=== PATIENT | male | born 1960 | race Caucasian/White ===

== ENCOUNTER 2017-03-16 10:51 | Emergency (ER) | payer OTHER ==
--- NOTE | 2017-03-16 11:19 | ER Document Report ---
ED Neck/Back Problem - General Chief Complaint: Back Injury Stated Complaint: BACK PAIN Time Seen by Provider: 03/16/17 11:19 Notes: 56-year-old male with history of ankylosing spondylitis. States that he fell one week ago landing on his thoracic spine. Having pain in the midline of his thoracic spine. States that he lives with chronic pain. Has followed by a pain medicine clinic in [place]. States that he has pain medication at home. More concerned that he might have broken something. States it hurts to bend over and lift things. Denies any fever. Denies any loss of bowel or bladder function. Denies any numbness to his lower extremities. Denies any saddle anesthesia. No fever. Has had multiple episodes of flareups of his ankylosing spondylitis. Has tried biologic agents but nothing seems to help. - Related Data Allergies/Adverse Reactions: codeine Allergy (Verified 03/16/17 10:57) NSAIDS (Non-Steroidal Anti-Inflamma Allergy (Verified 03/16/17 10:57) Sulfa (Sulfonamide Antibiotics) Allergy (Verified 03/16/17 10:57) Past Medical History - Social History Smoking Status: Current Every Day Smoker Family History: Reviewed & Not Pertinent Renal/ Medical History: Denies: Hx Peritoneal Dialysis Review of Systems - Review of Systems Constitutional: No symptoms reported EENT: No symptoms reported Cardiovascular: No symptoms reported Respiratory: No symptoms reported Gastrointestinal: No symptoms reported Genitourinary: No symptoms reported Male Genitourinary: No symptoms reported Musculoskeletal: No symptoms reported, Back pain Skin: No symptoms reported Hematologic/Lymphatic: No symptoms reported Neurological/Psychological: No symptoms reported Physical Exam - Vital signs Vitals: Temp Pulse Resp BP Pulse Ox 97.7 F 71 20 130/86 H 97 03/16/17 10:55 03/16/17 10:55 03/16/17 10:55 03/16/17 10:55 03/16/17 10:55 Interpretation: Normal - General General appearance: Appears well, Alert - HEENT Head: Normocephalic, Atraumatic Eyes: Normal Pupils: PERRL - Respiratory Respiratory status: No respiratory distress Chest status: Nontender Breath sounds: Normal Chest palpation: Normal - Cardiovascular Rhythm: Regular Heart sounds: Normal auscultation Murmur: No - Abdominal Inspection: Normal Distension: No distension Bowel sounds: Normal Tenderness: Nontender Organomegaly: No organomegaly - Back Back: Normal, Nontender - Extremities General upper extremity: Normal inspection, Nontender, Normal color, Normal ROM , Normal temperature General lower extremity: Normal inspection, Nontender, Normal color, Normal ROM , Normal temperature, Normal weight bearing. No: Sonu's sign - Neurological Neuro grossly intact: Yes Cognition: Normal Orientation: AAOx4 [place] Coma Scale Eye Opening: Spontaneous [place] Coma Scale Verbal: Oriented [place] Coma Scale Motor: Obeys Commands [place] Coma Scale Total: 15 Speech: Normal Motor strength normal: LUE, RUE, LLE, RLE Sensory: Normal - Psychological Associated symptoms: Normal affect, Normal mood - Skin Skin Temperature: Warm Skin Moisture: Dry Skin Color: Normal Course - Re-evaluation Re-evalutation: 03/16/17 13:49 X-ray was performed based on history of trauma. There is a query of possible rib fracture on the left. Did a controlled prescription inquiry and no current prescriptions for narcotics was found. Based on the fact that he likely does have a rib fracture as this is where his pain is we will give him a short supply of pain relief. We will also prescribe him some lidocaine patches to use. Patient encouraged to follow back up with pain specialist. Return for any worsening symptoms or concerns per Thoracic Spine X-Ray 03/16/17 12:12 IMPRESSION: Thoracic spine intact. Potential left 9th rib fracture. No pneumothorax. - Vital Signs Vital signs: Temp Pulse Resp BP Pulse Ox 97.7 F 71 20 130/86 H 97 03/16/17 10:55 03/16/17 10:55 03/16/17 10:55 03/16/17 10:55 03/16/17 10:55 Discharge - Discharge Clinical Impression: Rib fracture, Chronic pain Disposition: HOME, SELF-CARE Instructions: Ice Packs ([facility]), Oral Narcotic Medication ([facility]) Additional Instructions: Rib Injuries and Fractures You have been diagnosed as having either bruised or broken ribs. These two injuries are treated in the same way. It will usually take four to six weeks for these injured ribs to heal. Sometimes, rib belts or anesthetic injections of the chest wall help reduce the pain. If you are using a rib belt, you should cough or take a deep breath at least every hour or two to prevent lung complications. You should not engage in any strenuous physical activity until released by your physician. The usual rule is "if it hurts, don't do it." Rib fractures can lead to serious lung complications including lung collapse, hemorrhage, and pneumonia. You should call the physician or return at once if any of the following occur: (1) Fever or chills. (2) Persistent cough, coughing up blood, or shortness of breath. (3) Increasing pain. (4) Weakness, lightheadedness, or fainting. Prescriptions: Hydrocodone/Acetaminophen [Una 10-325 Tablet] 1 each PO Q6H PRN #15 tablet PRN Reason: Referrals: DEV SANCHEZ PA-C [Primary Care Provider] - Follow up as needed
--- NOTE | 2017-03-16 13:37 | RADIOLOGY REPORT (SQ) ---
EXAM DESCRIPTION: T SPINE AP/LAT COMPLETED DATE/TIME: 03/16/2017 1:04 pm REASON FOR STUDY: fall pain COMPARISON: None. NUMBER OF VIEWS: Two views. TECHNIQUE: AP and lateral radiographic images acquired of the thoracic spine. LIMITATIONS: None. FINDINGS: MINERALIZATION: Normal. ALIGNMENT: Mild kyphosis but no fracture. VERTEBRAE: No fracture or bone lesion. Maintained height, normal segmentation. DISCS: Mild multilevel disc space narrowing with mid to lower thoracic small osteophytes. HARDWARE: None in the spine. MEDIASTINUM AND SOFT TISSUES: Normal heart size and aortic contour. No soft tissue abnormality. VISUALIZED LUNG PRITCHETT: Clear. OTHER: Potential nondisplaced left posterior 9th rib fracture. IMPRESSION: Thoracic spine intact. Potential left 9th rib fracture. No pneumothorax. TECHNICAL DOCUMENTATION: JOB ID: [id number] [employer]- All Rights Reserved
[2017-03-16 14:09] VITALS: BP 145/75
== END 2017-03-16 14:05 | disposition home or self-care (01) ==
LOC: ER 10:51
DX: S22.39XA Fracture of one rib, unspecified side, initial encounter for closed fracture (principal); G89.29 Other chronic pain; M54.9 Dorsalgia, unspecified; F17.200 Nicotine dependence, unspecified, uncomplicated; W19.XXXA Unspecified fall, initial encounter
CPT/HCPCS: 72070; 99283

== ENCOUNTER 2019-07-19 03:13 | Emergency (ER) | payer MEDICARE ==
[2019-07-19 04:00] LABS: APPEARANCE,URINE SLIGHTLY-CLOUDY; BILIRUBIN,URINE NEGATIVE (NEGATIVE); COLOR,URINE YELLOW; GLUCOSE, URINE NEGATIVE (NEGATIVE); KETONES,URINE NEGATIVE (NEGATIVE); LEUKOCYTE ESTERASE,URINE TRACE (NEGATIVE); NITRITE,URINE NEGATIVE (NEGATIVE); PROTEIN,URINE 100 mg/dL (NEGATIVE); URINE SPECIFIC GRAVITY 1.018
[2019-07-19 04:09] LABS: ALBUMIN 4.2 g/dL (3.5-5.0); ALKALINE PHOSPHATASE 49 U/L (38-126); ANION GAP 7 (5-19); ASPARTATE AMINO TRANSFERASE 28 U/L (17-59); BILIRUBIN,TOTAL 0.4 mg/dL (0.2-1.3); BLOOD UREA NITROGEN 12 mg/dL (7-20); CALCIUM 9.3 mg/dL (8.4-10.2); CARBON DIOXIDE 27 mmol/L (22-30); CHLORIDE 105 mmol/L (98-107); GLUCOSE 111 mg/dL (75-110); POTASSIUM 4.2 mmol/L (3.6-5.0); TOTAL PROTEIN 6.6 g/dL (6.3-8.2)
[2019-07-19 04:11] LABS: ABSOLUTE BASOPHILS # (AUTO) 0.1 10^3/uL (0.0-0.2); ABSOLUTE EOSINOPHILS # (AUTO) 0.1 10^3/uL (0.0-0.6); ABSOLUTE LYMPHOCYTES (AUTO) 1.5 10^3/uL (0.5-4.7); ABSOLUTE MONOCYTES (AUTO) 0.8 10^3/uL (0.1-1.4); ABSOLUTE NEUT (AUTO) 4.7 10^3/uL (1.7-8.2); BASOPHILS % (AUTO) 0.8 % (0-2); EOSINOPHILS % (AUTO) 1.9 % (0-6); HEMATOCRIT 42.7 % (37.9-51.0); HEMOGLOBIN 14.6 g/dL (13.5-17.0); LYMPHOCYTES % (AUTO) 21.2 % (13-45); MEAN CORPUSCULAR HEMOGLOBIN 32.4 pg (27.0-33.4); MEAN CORPUSCULAR HGB CONC 34.2 g/dL (32.0-36.0); MEAN CORPUSCULAR VOLUME 95 fl (80-97); MONOCYTES % (AUTO) 11.6 % (3-13); PLATELET COUNT 239 10^3/uL (150-450); RED BLOOD COUNT 4.51 10^6/uL (4.35-5.55); SEGMENTED NEUTROPHILS % (AUTO) 64.5 % (42-78); TOTAL CELLS COUNTED % (AUTO) 100 %; WHITE BLOOD COUNT 7.2 10^3/uL (4.0-10.5)
[2019-07-19] MEDS ORDERED: MORPHINE SULFATE 10 MG/ML INJ IV PRN (07:04)
--- NOTE | 2019-07-19 09:46 | RADIOLOGY REPORT (SQ) ---
EXAM DESCRIPTION: CT ABD/PELVIS NO ORAL OR IV COMPLETED DATE/TIME: 07/19/2019 9:29 am REASON FOR STUDY: Hematuria, left flank and abdomen pain COMPARISON: 08/08/2018. TECHNIQUE: CT scan of the abdomen and pelvis performed without intravenous or oral contrast. Images reviewed with lung, soft tissue, and bone windows. Reconstructed coronal and sagittal MPR images revi ewed. All images stored on PACS. All CT scanners at this facility use dose modulation, iterative reconstruction, and/or weight based d osing when appropriate to reduce radiation dose to as low as reasonably achievable (ALARA). [facility]: Dose Right [facility]: CareDose [facility]: Dose Right [facility]: Teradose 4D [facility]: Smart [employer] RADIATION DOSE: CT Rad equipment meets quality standard of care and radiation dose reduction techniq ues were employed. CTDIvol: 15.5 mGy. DLP: 869 mGy-cm.mGy. LIMITATIONS: None. FINDINGS: LOWER CHEST: No significant findings. No nodules or infiltrates. NON-CONTRASTED LIVER, SPLEEN, ADRENALS: Evaluation limited by lack of IV contrast. No identified sign ificant masses. PANCREAS: No masses. No peripancreatic inflammatory changes. GALLBLADDER: Surgically absent. RIGHT KIDNEY AND URETER: 9 mm exophytic lesion on the cortex of the lower pole. Average [place]oun[place] u nits roughly 20. Assessment limited by lack of IV contrast. No significant calcifications. No hyd ronephrosis or hydroureter. LEFT KIDNEY AND URETER: No suspicious masses. Assessment limited by lack of IV contrast. 9 mm calcu ale in the renal pelvis. No hydronephrosis or hydroureter. AORTA AND RETROPERITONEUM: No aneurysm. No retroperitoneal masses or adenopathy. BOWEL AND PERITONEAL CAVITY: Diverticuli in the descending and sigmoid colon. No obvious masses or i nflammatory changes. No free fluid. APPENDIX: Normal. PELVIS, BLADDER, AND ABDOMINAL WALL:No abnormal masses. No free fluid. Bladder normal. BONES: No significant findings. OTHER: No other significant finding. IMPRESSION: 1. 9 MM NONOBSTRUCTING CALCULUS IN THE RENAL PELVIS OF THE LEFT KIDNEY. 2. SMALL EXOPHYTIC CORTICAL LESION ON THE LOWER POLE OF THE RIGHT KIDNEY. COULD BE A CYST ALTHOUGH I NDETERMINATE APPEARANCE ON NONCONTRAST CT. MAY CONSIDER FOLLOW-UP ULTRASOUND FOR FURTHER EVALUATION. 3. COLONIC DIVERTICULOSIS. NO CT FINDINGS OF ACUTE DIVERTICULITIS. 4. NO OTHER SIGNIFICANT OR ACUTE PROCESS IN THE ABDOMEN OR PELVIS. COMMENT: Quality ID # [id number]: Final reports with documentation of one or more dose reduction techniques (e.g., Automated exposure control, adjustment of the mA and/or kV according to patient size, use of iterative reconstruction technique) TECHNICAL DOCUMENTATION: JOB ID: [id number] 2011 [employer]- All Rights Reserved Reading location - IP/workstation name: [email or web address]
--- NOTE | 2019-07-19 10:57 | ER Document Report ---
Entered by JJ AMOR SCRIBE 07/19/19 0938 Acting as scribe for:FABI PETERS MD ED GI/ - General Chief Complaint: Possible Kidney Stone Stated Complaint: POSSIBLE KIDNEY STONES Time Seen by Provider: 07/19/19 08:58 Primary Care Provider: RADHA SANCHEZ MD [Primary Care Provider] - Follow up as needed Notes: This 58-year-old male patient with long history of diverticulitis, and previous kidney stones reported a vague discomfort in his left lower quadrant throughout the day yesterday. He reported at 1 AM this morning it became quite severe in the left lower quadrant going into the left lower back, causing him to drop to his knees. Yesterday he started taking leftover Flagyl that he had for previous episodes of diverticulitis, and was going to start taking his Cipro he has. The patient is currently on buprenorphine sublingual as he was taken off of chronic oxycodone management of his chronic pain syndrome. There is no history of fever, no nausea or vomiting. TRAVEL OUTSIDE OF THE [place] IN LAST 30 DAYS: No - Related Data Allergies/Adverse Reactions: codeine Allergy (Verified 08/08/18 12:42) NSAIDS (Non-Steroidal Anti-Inflamma Allergy (Verified 08/08/18 12:42) Sulfa (Sulfonamide Antibiotics) Allergy (Verified 08/08/18 12:42) Home Medications: Omeprazole 40mg once. Crestor 10mg once. Metoprolol. Prednisone Past Medical History - General Information source: Patient - Social History Smoking Status: Former Smoker Cigarette use (# per day): No Frequency of alcohol use: None Drug Abuse: None Lives with: Family Family History: Reviewed & Not Pertinent, Other - Aortic aneurysm Patient has suicidal ideation: No Patient has homicidal ideation: No Renal/ Medical History: Reports: Hx Kidney Stones. Denies: Hx Peritoneal Dialysis GI Medical History: Reports: Hx Ulcer Past Surgical History: Reports: Hx Cholecystectomy Review of Systems - Review of Systems Constitutional: No symptoms reported EENT: No symptoms reported Cardiovascular: No symptoms reported Respiratory: No symptoms reported Gastrointestinal: See HPI, Abdominal pain Genitourinary: No symptoms reported Male Genitourinary: No symptoms reported Musculoskeletal: No symptoms reported Skin: No symptoms reported Hematologic/Lymphatic: No symptoms reported Neurological/Psychological: No symptoms reported -: Yes All other systems reviewed and negative Physical Exam - Vital signs Vitals: Temp Pulse Resp BP Pulse Ox 97.4 F 90 20 109/87 H 95 07/19/19 03:27 07/19/19 03:27 07/19/19 03:27 07/19/19 03:27 07/19/19 03:27 - Notes Notes: PHYSICAL EXAMINATION: GENERAL: Well-appearing, well-nourished and in no acute distress. Patient reports he feels comfortable now due to the morphine he was given earlier. HEAD: Atraumatic, normocephalic. EYES: Pupils equal round and reactive to light, extraocular movements intact, sclera anicteric, conjunctiva are normal. ENT: nares patent, oropharynx clear without exudates. Moist mucous membranes. NECK: Normal range of motion, supple without lymphadenopathy LUNGS: Breath sounds clear to auscultation bilaterally and equal. No wheezes rales or rhonchi. HEART: Regular rate and rhythm without murmurs ABDOMEN: Obese, soft, tender to palpate in the left lower quadrant more toward the lateral aspect, normoactive bowel sounds. No guarding. BACK: No CVA percussion tenderness EXTREMITIES: Normal range of motion, no pitting or edema. No cyanosis. NEUROLOGICAL: Cranial nerves grossly intact. Normal speech, normal gait. Normal sensory, motor, and reflex exams. PSYCH: Normal mood, normal affect. SKIN: Warm, Dry, normal turgor, no rashes or lesions noted. Course - Vital Signs Vital signs: Temp Pulse Resp BP Pulse Ox 97.4 F 90 20 109/87 H 95 07/19/19 03:27 07/19/19 03:27 07/19/19 03:27 07/19/19 03:27 07/19/19 03:27 - Laboratory Result Diagrams: 07/19/19 03:40 07/19/19 03:40 Laboratory results interpreted by me: 07/19/19 07/19/19 03:40 03:40 Glucose 111 H Urine Protein 100 H Urine Blood MODERATE H Urine Urobilinogen 2.0 H Ur Leukocyte Esterase TRACE H Urine Ascorbic Acid 40 H - Diagnostic Test Radiology reviewed: Image reviewed, Reports reviewed - CT scan shows a nonob structing 9 mm stone in the left renal pelvis with no hydroureter and no hydronephrosis. There is diverticular disease without any inflammatory changes seen. Discharge - Discharge Clinical Impression: Left lower quadrant abdominal pain, History of diverticulitis, Stone in renal pelvis Condition: Stable Disposition: HOME, SELF-CARE Additional Instructions: Abdominal Pain There are many causes of abdominal pain. Pain can mean a serious problem r equiring surgery (such as appendicitis). It can also be an innocent problem that goes away on its own (such as a viral infection). Often, time must pass to determine the cause of pain. The physician does not feel that hospitalization is necessary, at present. Things may change within the next 24 hours. Call the doctor or come back for re- examination if any problems occur, such as: (1) Pain that becomes more severe, steady, or becomes concentrated in one specific area. Also, pain that is more severe with movement or coughing. (2) Vomiting that persists or becomes more frequent. (3) Blood in the vomitus, urine, or bowel movements. Blood in the stool may have a tarry or black appearance. (4) Shaking chills or fever greater than 100 degrees F. (5) The abdomen becomes more distended or swollen. (6) Bowel movements cease. (7) Failure to improve as expected. Your CT scan today shows a 9 mm stone in the left renal pelvis. The stone is not causing any obstruction and should probably not be causing any of your symptoms. You are quite tender in the lateral left lower quadrant of your abdomen and this is very suggestive of a flareup of your diverticulitis. You will be placed on Cipro and Flagyl for possible diverticulitis, a prescription for oxycodone for pain if Tylenol does not control your pain. Drink plenty of fluids. Call [facility] urology to schedule a follow-up appointment for the left renal pelvis stone. Follow-up with your primary care provider for your possible diverticular disease if not improving. RETURN TO THE EMERGENCY ROOM IF ANY NEW OR WORSENING SYMPTOMS. Prescriptions: Ciprofloxacin HCl [Cipro 500 mg Tablet] 500 mg PO BID #14 tablet Metronidazole [Flagyl 500 mg Tablet] 500 mg PO TID #21 tablet Oxycodone HCl [Oxy-Ir 5 mg Tablet] 5 mg PO Q4 PRN #12 tablet PRN Reason: For Pain Referrals: RADHA SANCHEZ MD [Primary Care Provider] - Follow up as needed Scribe Attestation: 07/19/19 10:19 I personally performed the services described in the documentation, reviewed and edited the documentation which was dictated to the scribe in my presence, and it accurately records my words and actions. I personally performed the services described in the documentation, reviewed and edited the documentation which was dictated to the scribe in my presence, and it accurately records my words and actions.
[2019-07-19 10:58] VITALS: BP 137/72
== END 2019-07-19 10:58 | disposition home or self-care (01) ==
LOC: ER 03:13
DX: N20.0 Calculus of kidney (principal); K57.30 Diverticulosis of large intestine without perforation or abscess without bleeding; R10.32 Left lower quadrant pain; R10.814 Left lower quadrant abdominal tenderness; G89.4 Chronic pain syndrome; Z79.891 Long term (current) use of opiate analgesic; Z79.899 Other long term (current) drug therapy; Z87.19 Personal history of other diseases of the digestive system; Z79.52 Long term (current) use of systemic steroids; Z87.891 Personal history of nicotine dependence
CPT/HCPCS: 36415; 74176; 80053; 81001; 83690; 85025; 96374; 96376; 99284; J2270

== ENCOUNTER → 2020-02-04 | Outpatient (CLI) | payer MEDICARE ==
--- NOTE | 2020-02-04 10:35 | ER RDC ASSESSMENT REPORT ---
Intake - In the Last 14 days Have you traveled outside [place]?: No Have you been in close contact with someone CONFIRMED: No Worked in Healthcare?: No - Symptoms Subjective Fever(Iraan feverish): No Chills: No Muscule Aches: Yes --How many day(s)?: 8 months Runny Nose: No Sore Throat: No Cough (New or worsening chronic cough): Yes --How many day(s)?: 8 months Shortness of breath: Yes --How many day(s)?: 8 months Nausea or Vomiting: No Headache: No Abdominal Pain: No Diarrhea(3 or more loose stools in last 24 hours): No - Do you have any of the following Chronic lung disease: Asthma or emphysema or COPD: Yes Cystic Fibrosis: No Diabetes: No High Blood Pressure: Yes Cardiovascular Disease: Yes Chronic Kidney Disease: No Chronic Liver Disease: No Chronic blood disorder like Sickle Cell Disease: No Weak immune system due to disease or medication: No Neurologic condition that limits movement: No Developmental delay - Moderate to Severe: No Morbid Obesity (>100 pounds over ideal weight): No - Objective Temperature: 97.5 F Pulse Rate: 91 Respiratory Rate: 18 Blood Pressure: 142/83 O2 Sat by Pulse Oximetry: 96 Objective: Given above, testing performed: covid Disposition: Home; Selfcare General - General Stated Complaint: myalgia, cough, SOB with exertion Time Seen by Provider: 02/04/20 10:20 Mode of Arrival: Ambulatory Information source: Patient - HPI Notes: 59-year-old male presents to [facility] clinic for COVID-19 testing. Patient reports no known contact with COVID positive individual. Patient reports onset of symptoms over 8 months ago and include shortness of breath with exertion, wheeze, cough, and myalgia. However these appear they may be related more to underlying conditions of COPD and fibromyalgia. No acute change in symptoms over the past 30 to 60 days. Denies any fever, chills, sore throat, runny nose, nausea, headache, abdominal pain, or diarrhea. - Related Data Allergies/Adverse Reactions: codeine Allergy (Verified 08/08/18 12:42) NSAIDS (Non-Steroidal Anti-Inflamma Allergy (Verified 08/08/18 12:42) Sulfa (Sulfonamide Antibiotics) Allergy (Verified 08/08/18 12:42) Home Medications: Anoro, Toprol Past Medical History - General Information source: Patient - Social History Smoking Status: Current Every Day Smoker Family History: Reviewed & Not Pertinent, Other - Aortic aneurysm - Past Medical History Cardiac Medical History: Reports: Hx Hypertension Pulmonary Medical History: Reports: Hx COPD EENT Medical History: Reports: None Neurological Medical History: Reports: None Endocrine Medical History: Reports: None Renal/ Medical History: Reports: Hx Kidney Stones. Denies: Hx Peritoneal Dialysis Malignancy Medical History: Reports None GI Medical History: Reports: Hx Ulcer Musculoskeletal Medical History: Reports Hx Fibromyalgia Other: spondylosis Skin Medical History: Reports None Psychiatric Medical History: Reports: None Traumatic Medical History: Reports: None Infectious Medical History: Reports: None Past Surgical History: Reports: Hx Cholecystectomy Physical Exam - General General appearance: Appears well, Alert In distress: None Notes: PHYSICAL EXAMINATION: GENERAL: Well-appearing and in no acute distress. HEAD: Atraumatic, normocephalic. EYES: sclera anicteric, conjunctiva are normal. ENT: nares patent. Moist mucous membranes. NECK: Normal range of motion, supple without lymphadenopathy. LUNGS: No increased work of breathing. Lung sounds CTAB and equal. No wheezes rales or rhonchi. HEART: Regular rate and rhythm without murmurs. ABDOMEN: Soft, nontender, normal bowel sounds, no guarding. EXTREMITIES: Normal range of motion, no pitting edema. No cyanosis. NEUROLOGICAL: A&O x 3. Normal speech. PSYCH: Normal mood, normal affect. SKIN: Warm, Dry, normal turgor, no rashes or lesions noted Patient Education/Counseling Counseling/Education: Patient presents with symptoms associated with possible Covid 19 infection. Patient does not have emergency worrying symptoms such as difficulty breathing, shortness of breath, chest pain, pressure, confusion or cyanosis. Patient appears suitable for discharge as vital signs are stable and patient is nontoxic in appearance. Good return precautions have been discussed with patient, patient verbalized understanding and is agreeable with discharge plan of care at this time. Guidance for worsening S/SX: As a person under investigation for Covid 19, the [facility], division of public health advises you to adhere to the following guidance until your test results are reported to you. If your test result is positive, you will receive additional information from your provider and your local health department at that time. Remain at home until you are cleared by the health provider or public health authorities. Keep a log of visitors to your home, notify any visitors to your home of your isolation status. If you plan to move to a new address or leave the county, notify the local health department in your County. Call your doctor or seek care if you have an urgent medical need. Before seeking medical care, call ahead to get instructions from the provider before arriving at the medical office clinic or hospital. Notify them that you are being tested for the virus that causes Covid 19 so that arrangements can be made, as necessary, to prevent transmission to others in the healthcare setting. Next, notify the local health department in your county. If a medical emergency arises and you need to call 911, inform the first responders that you are being tested for the virus that causes Covid 19. Next, notify the local health department in your county. RDC Discharge - Discharge Clinical Impression: Encounter for screening laboratory testing for COVID-19 virus Condition: Good Disposition: Home; Selfcare
[2020-02-04 10:36] VITALS: BP 142/83
== END ==
LOC: RDC 09:58
PROVIDERS: ATTEND Registered Nurse
DX: Z20.828 Contact with and (suspected) exposure to other viral communicable diseases (principal); R05 Cough; J44.9 Chronic obstructive pulmonary disease, unspecified; R06.2 Wheezing; R06.02 Shortness of breath; M79.10 Myalgia, unspecified site; I10 Essential (primary) hypertension; F17.200 Nicotine dependence, unspecified, uncomplicated; Z88.1 Allergy status to other antibiotic agents; Z88.6 Allergy status to analgesic agent; Z88.8 Allergy status to other drugs, medicaments and biological substances
CPT/HCPCS: U0003; C9803; 87635; 99201; 99211